=== PATIENT | male | born 1995 | race Caucasian/White ===

== ENCOUNTER 2017-01-14 19:53 | Emergency (ER) | payer OTHER ==
[~2017-01-14] VITALS: Wt 74.5 kg
[2017-01-14] MEDS ORDERED: CEPH-443 PO (21:49)
[2017-01-14] MEDS ORDERED: HYDROCODONE/APAP (5/325) TAB PO ONE (22:00)
[2017-01-14] MEDS ORDERED: CEFTRIAXONE 1 GM INJ IM ONE (22:00)
[2017-01-14] MEDS ORDERED: IBUPROFEN 600 MG TAB PO ONE (22:00)
[2017-01-14] MEDS ORDERED: LIDOCAINE 1% (MDV) 20 ML INJ SC ONE (22:00)
[2017-01-14 22:30] VITALS: PULSE 68; RESP 16; TEMP 98.1
--- NOTE | 2017-01-15 01:00 | ERD ---
ER Documentation Chief Complaint Date/Time DATE: 01/15/17 TIME: 00:57 Chief Complaint Swollen foot since Tuesday d/t athele's foot HPI This patient is a 21-year-old male with no significant medical history presenting to the emergency department for swelling and redness to his right foot which began 3 days ago. Symptoms are worsening now. Symptoms are constant. Patient denies trauma or injury. The patient does wear boots at work which exacerbates the pain and swelling. The patient has history of athlete's foot to the right foot. He reports being unable to ambulate secondary to pain since yesterday. No other symptoms reported currently. ROS All systems reviewed and are negative except as per history of present illness. Medications Home Meds Active Scripts Cephalexin* (Keflex*) 500 Mg Capsule, 500 MG PO QID for 10 Days, #40 CAP Prov:ARIELLA THAYER PA-C 01/14/17 Allergies Allergies: Coded Allergies: No Known Allergy (Unverified , 01/10/14) PMhx/Soc Medical and Surgical Hx: pt denies Surgical Hx History of Surgery: No Anesthesia Reaction: No Hx Neurological Disorder: No Hx Respiratory Disorders: No Hx Cardiac Disorders: No Hx Psychiatric Problems: Yes (anxiety, depression) Hx Alcohol Use: No Hx Substance Use: Yes (THC) Hx Tobacco Use: No FmHx Noncontributory for chief complaint Physical Exam Vitals Vital Signs Date Time Temp Pulse Resp B/P Pulse Ox O2 Delivery O2 Flow Rate FiO2 01/14/17 22:30 98.1 68 16 01/14/17 20:39 100.8 99 20 121/68 98 Physical Exam Const: The patient is resting comfortably in no acute distress. Head: Atraumatic Eyes: Normal Conjunctiva ENT: Normal External Ears, Nose and Mouth. Neck: Full range of motion..~ No meningismus. Resp: Clear to auscultation bilaterally Cardio: Regular rate and rhythm, no murmurs Abd: Soft, non tender, non distended. Normal bowel sounds Skin: No petechiae or rashes. There is erythema and warmth and associated edema to the right foot. Erythema does not cross the ankle joint. There is no obvious deformity or open sores or abscess present. Back: No midline or flank tenderness Ext: No cyanosis, or edema Neur: Awake and alert Psych: Normal Mood and Affect Results 24 hrs Current Medications Medications (Trade) Dose Ordered Sig/Lilian Route PRN Reason Start Time Stop Time Status Last Admin Dose Admin Ceftriaxone Sodium (Rocephin) 1 gm ONCE ONCE IM 01/14/17 22:00 01/14/17 22:01 DC 01/14/17 21:55 Ibuprofen (Motrin) 600 mg ONCE ONCE PO 01/14/17 22:00 01/14/17 22:01 DC 01/14/17 21:56 Acetaminophen/ Hydrocodone Bitart ([place] (5/325)) 1 tab ONCE ONCE PO 01/14/17 22:00 01/14/17 22:01 DC 01/14/17 21:56 Lidocaine (Xylocaine 1% (Mdv) 20 ml) 20 ml ONCE ONCE SC 01/14/17 22:00 01/14/17 22:01 DC 01/14/17 21:56 Procedures/MDM 21-year-old male presents secondary to complaints of redness, pain, and swelling to the right foot. On physical examination the patient's temperature is slightly elevated at 100.8F. The patient was given ibuprofen, Rocephin, and [place] in the department and was feeling improved on reevaluation. Dr. Tania Alvarado evaluated the patient bedside and agreed with the ED course and discharge plan and diagnosis. The patient has cellulitis of the right foot. The patient is stable for outpatient management with a prescription for Keflex. The patient agrees with the discharge plan and diagnosis. All questions and concerns addressed. The patient is to follow-up here in 24 hours for repeat evaluation. The patient is to have close follow-up with his primary care physician. At this point I have low suspicion for septic joint, disseminated cellulitis, necrotizing fasciitis, septicemia, or other emergent conditions. Strict ER return precautions were discussed and the patient demonstrates good understanding. Departure Diagnosis: Primary Impression: Cellulitis Site of cellulitis: extremity Site of cellulitis of extremity: lower extremity Laterality: right Qualified Code: L03.115 - Cellulitis of right lower extremity Condition: Fair Patient Instructions: Cellulitis Referrals: [facility] YOU HAVE RECEIVED A MEDICAL SCREENING EXAM AND THE RESULTS INDICATE THAT YOU DO NOT HAVE A CONDITION THAT REQUIRES URGENT TREATMENT IN THE EMERGENCY DEPARTMENT. FURTHER EVALUATION AND TREATMENT OF YOUR CONDITION CAN WAIT UNTIL YOU ARE SEEN IN YOUR DOCTORS OFFICE WITHIN THE NEXT 1-2 DAYS. IT IS YOUR RESPONSIBILITY TO MAKE AN APPOINTMENT FOR FOLOW-UP CARE. IF YOU HAVE A PRIMARY DOCTOR --you should call your primary doctor and schedule an appointment IF YOU DO NOT HAVE A PRIMARY DOCTOR YOU CAN CALL OUR PHYSICIAN REFERRAL HOTLINE AT IF YOU CAN NOT AFFORD TO SEE A PHYSICIAN YOU CAN CHOSE FROM THE FOLLOWING [facility] [address] [facility] [address] [facility] [address] [facility] [address] [facility] [address] [facility]. [facility]. [address] Additional Instructions: Return here in 24-48 hours for repeat evaluation. Follow up with your PCP within the next 1-3 days. Return the the emergency department immediately if symptoms worsen or change. If you have any questions regarding medications, ask your pharmacist or us before you leave. If any adverse reactions, occur while taking your medications, discontinue the treatment and return to the emergency department immediately. If any new or worsening symptoms, uncontrolled fevers, or other unexplained symptoms occur, return to the emergency department immediately. Take your medications as directed, and complete the entire course of treatment. ARIELLA THAYER PA-C January 15, 2017 01:00
== END 2017-01-14 22:30 | disposition home or self-care (01) ==
LOC: FTE 19:53
DX: L03.115 Cellulitis of right lower limb (principal)
CPT/HCPCS: J0696; Z7610; 96372